=== PATIENT | female | born 1950 | race Caucasian/White ===

== ENCOUNTER 2016-12-30 07:44 | Emergency (ER) | payer MEDICARE, MEDICAID ==
[~2016-12-30] VITALS: Ht 157.5 cm; Wt 65.0 kg
[2016-12-30 07:46] VITALS: BP 132/94; PULSE 98; RESP 15; O2SAT 100
[2016-12-30] MEDS ORDERED: 0.9% Sodium Chloride 1,000 ML IV ONE (07:47)
[2016-12-30] MEDS ORDERED: Ondansetron 2 mg/mL 2 mL Inj ONE (08:11)
[2016-12-30 08:12] LABS: BASOPHILS % (AUTO) 0.5 % (0-3); EOSINOPHILS % (AUTO) 2.3 % (0-5); Mean Corpuscular Hemoglobin 24.7 pg (27.0-35.0); Mean Corpuscular Volume 81.5 fL (81-100); NEUTROPHILS % (AUTO) 70.7 % (40-74); Platelet Count 589 bil/L (150-400)
[2016-12-30 08:33] LABS: Magnesium 1.8 mg/dL (1.6-2.6)
--- NOTE | 2016-12-30 09:01 | ED.REPORT ---
HPI-Abd Pain F 40 and Over Date of Service Dec 30, 2016 ED Provider: Dinesh Craig MD The pt is a 66 y/o female w/ a hx of arthritis, anemia, anxiety, a hiatal hernia , and an UTi presenting to the ED complaining of abdominal pain onset two weeks ago. She describes the pain being in the "middle upper" area, intermittent, and has been much worse in the last 3 days. Other symptoms include vomiting, and SOB secondary to pain. Denies diarrhea, constipation, dysuria, chest pain, or blood in stools. She is taking leftover pain medications to help w/ the pain. The pt also describes having a sour taste in her mouth similar to acid reflux she has experienced in the past. Nursing Notes Stated Complaint: ABDOMINAL PAIN Chief Complaint: Female Abdominal Pain Nursing Notes Reviewed: Yes Allergies: Coded Allergies: codeine (Verified Allergy, Severe, HIVES, 11/06/16) Tetracyclines (Verified Allergy, Unknown, 11/06/16) Cultivated Oat Pollen (Verified Adverse Reaction, Mild, ruuny nose, itchy eyes, 11/06/16) Scheduled Omeprazole (Omeprazole) 40 Mg Capsule.dr 40 MG PO DAILY General Time Seen by MD: 08:12 Chief Complaint Abdominal pain Hx Obtained From: Patient Arrived By: Walk-in Sudden in Onset?: Yes Onset Occurred: More than a week ago... (2 weeks) Symptom Duration: Intermittent Location: : Epigastric Recent Healthcare: No recent hospitalization, Recent doctor visit Similar Sx Previous: Yes Past Medical History Past Medical History Seronegative Arthritis Deformity of the R foot Fibromyalgia DJD of the R knee Bipolar (she reports her doctor isn't sure she actually has this) Anemia Anxiety Hiatal hernia UTI Past Surgical History She reports bilateral foot surgery (Dr. Matthew) Smoking History Never Smoker Social History Drug Use: Denies drug use Other Social History: Local resident Ambulatory Status Independent Review of Systems Sour taste in mouth; Respiratory: Reports: Shortness of breath (secondary to pain ) Cardiovascular: Denies: Chest pain GI: Reports: Abdominal pain, Vomiting, Denies: Bloody/tarry stool (f), Constipation, Diarrhea Female: Denies: Dysuria Complete sys rev & neg: except as marked. Physical Exam Vital Signs Vital Signs (First) Date Time Temp Pulse Resp B/P Pulse Ox O2 Delivery O2 Flow Rate FiO2 12/30/16 07:46 36.1 98 15 132/94 100 Room Air Initial VS: Reviewed Head / Eyes: Atraumatic, Normocephalic, PERRL ENT: Mucous membranes moist, Conjunctiva normal, No scleral icterus Neck: Supple, Non-tender, Full range of motion Extremities: Vascular intact, Neuro intact, No swelling, No tenderness Skin: Warm, Dry, No cyanosis Neurologic: Alert, Oriented, Nonfocal Psychiatric: Mood/affect normal, Behavior normal, Normal thought content General/Constitutional: Awake, Alert Respiratory / Chest: Atraumatic, Breath sounds NL, Breath sounds = bilat, No respiratory distress, No rales, No rhonchi, No wheezing Cardiovascular: Heart rate NL, Regular rhythm, Heart sounds NL, No gallop, No murmurs, No rubs Abdomen: Soft, No guarding, No rebound Tenderness/Guarding/Rebound: Positive: Tender epigastric (mild ) Back: Full range of motion, No CVA tenderness Interpretation & Diagnostics Lab Results Interpretation Result Diagram: 12/30/16 0805 12/30/16 0805 Test 12/30/16 08:05 12/30/16 09:18 White Blood Count 12.8th/mm3 (3.8-10.1) Red Blood Count 4.66mil/mm3 (3.90-5.20) Hemoglobin 11.5g/dL (12.0-15.6) Hematocrit 38.0% (35.0-46.0) Mean Corpuscular Volume 81.5fL (81-100) Mean Corpuscular Hemoglobin 24.7pg (27.0-35.0) Mean Corpuscular Hemoglobin Concent 30.3% (32.0-37.0) Red Cell Distribution Width 14.3% (12.3-15.4) Platelet Count 589bil/L (150-400) Neutrophils (%) (Auto) 70.7% (40-74) Lymphocytes (%) (Auto) 16.3% (14-46) Monocytes (%) (Auto) 10.0% (4-12) Eosinophils (%) (Auto) 2.3% (0-5) Basophils (%) (Auto) 0.5% (0-3) Sodium Level 141mEq/L (134-144) Potassium Level 3.7mEq/L (3.5-5.2) Chloride Level 101mEq/L (97-108) Carbon Dioxide Level 22mmol/L (18-29) Blood Urea Nitrogen 9mg/dL (8-27) Creatinine 0.71mg/dL (0.57-1.00) Estimat Glomerular Filtration Rate 118mL/min (>59) Glucose Level 126mg/dL (60-99) Calcium Level 9.2mg/dL (8.5-10.1) Magnesium Level 1.8mg/dL (1.6-2.6) Total Bilirubin 0.2mg/dL (0.0-1.2) Aspartate Amino Transf (AST/SGOT) 21U/L (0-50) Alanine Aminotransferase (ALT/SGPT) 16U/L (0-32) Alkaline Phosphatase 112U/L (25-165) Total Protein 7.0g/dL (6.4-8.4) Albumin 3.6g/dL (3.4-5.0) Lipase 29U/L (13-60) Hold Bowden Top Tube Received (Received) Hold Urine Received (Received) Re-Eval/Medical Decision Med Decision/Clinical Course 66-year-old female history of acid reflux presenting complaining of epigastric pain times one week. She reports this is similar to her acid reflux. Symptoms resolved after GI cocktail. Her labs are unremarkable. She felt much better after GI cocktail. Abdomen soft and nontender. She was discharged home with plans to resume her PPI and take Tums as needed. Return precautions given. Follow up primary doctor 2-3 days. Source of Hx: Old records Counseled Regarding: Diagnosis, Lab results, Need for follow-up, When/why to return to ED Discharge & Departure Primary Impression: Abdominal pain Abdominal location: unspecified location Qualified Code: R10.9 - Unspecified abdominal pain Additional Impression: Gastritis Gastritis type: unspecified gastritis Chronicity: unspecified Gastritis bleeding: presence of bleeding unspecified Qualified Code: K29.70 - Gastritis , unspecified, without bleeding Disposition: Home Discharge Condition All VS Reviewed: Yes Condition: Stable Additional Instructions: Thank for you entrusting us with your care today. You were diagnosed with abdominal pain and gastritis. Please use the Prilosec as prescribed. Please return to the emergency department if you experience any worsening abdominal pain, blood in your stools, black stools, fever, pain with urination, back pain, lightheadedness, dizziness, or chest pain. I hope you feel better soon. Referrals: Dinesh Bond MD (PCP) Scribe Attestation Portions of this note were transcribed by Spenser Cunningham. I, Dr. Craig personally performed the history, physical exam and medical decision-making; I reviewed and confirmed the accuracy of the information in the transcribed note. Signed by: Dipak De Los Santos, 12/30/16 and 0930. copies to: Dinesh Bond MD, Ben M MD Dec 30, 2016 09:01 Spenser Cunningham Dec 30, 2016 09:08
[2016-12-30] MEDS ORDERED: LidocaineVisc 2%:Antacid 1:1 10 mL Syringe PO ONE (09:05)
[2016-12-30] MEDS ORDERED: OMEP40CA36 PO (11:37)
[2016-12-30 11:48] VITALS: BP 141/85; PULSE 93; RESP 16; O2SAT 100
== END 2016-12-30 11:51 | disposition home or self-care (01) ==
LOC: SED 07:46
DX: K29.70 Gastritis, unspecified, without bleeding (principal); M19.90 Unspecified osteoarthritis, unspecified site; D64.9 Anemia, unspecified; F41.9 Anxiety disorder, unspecified; K21.9 Gastro-esophageal reflux disease without esophagitis; Z87.19 Personal history of other diseases of the digestive system; Z87.440 Personal history of urinary (tract) infections; Z88.5 Allergy status to narcotic agent; Z88.1 Allergy status to other antibiotic agents
CPT/HCPCS: 36415; 80053; 83690; 83735; 85025; 96361; 96374; 99284; J2405; J7030